=== PATIENT | male | born 1975 | race Caucasian/White ===

== ENCOUNTER 2021-08-06 11:55 | Inpatient (IN) | payer OTHER ==
[~2021-08-06] VITALS: Ht 172.7 cm; Wt 95.5 kg
[2021-08-06 12:41] LABS: HEMATOCRIT 39.9 % (42.0-52.0); HEMOGLOBIN 13.4 g/dl (13.5-17.5); MEAN CORPUSCULAR HEMOGLOBIN 29.3 pg (27.0-33.0); MEAN CORPUSCULAR HGB CONC 33.6 g/dl (32.0-36.5); MEAN CORPUSCULAR VOLUME 87.1 fl (80.0-96.0); PLATELET COUNT, AUTOMATED 302 10^3/uL (150-450); RED BLOOD COUNT 4.58 10^6/uL (4.30-6.10); WHITE BLOOD COUNT 9.3 10^3/uL (4.0-10.0)
[2021-08-06 13:14] LABS: ACETAMINOPHEN LEVEL < 2.0 UG/ML (10.0-30.0); ALBUMIN 3.7 GM/DL (3.2-5.2); ALT/SGPT 31 U/L (12-78); BILIRUBIN,DIRECT < 0.1 MG/DL (0.0-0.2); BILIRUBIN,TOTAL 0.2 MG/DL (0.2-1.0); BLOOD UREA NITROGEN 12 MG/DL (7-18); CALCIUM LEVEL 8.7 MG/DL (8.5-10.1); CARBON DIOXIDE LEVEL 27 MEQ/L (21-32); CHLORIDE LEVEL 106 MEQ/L (98-107); CREATININE FOR GFR 0.89 MG/DL (0.70-1.30); ETHYL ALCOHOL (ETHANOL) < 0.003 % (0.000-0.010); GLOMERULAR FILTRATION RATE > 60.0 (>60); GLUCOSE, FASTING 111 MG/DL (70-100); POTASSIUM SERUM 4.1 MEQ/L (3.5-5.1); SALICYLATE LEVEL < 1.7 MG/DL (5.0-30.0); SODIUM LEVEL 140 MEQ/L (136-145); TOTAL PROTEIN 6.9 GM/DL (6.4-8.2)
[2021-08-06 13:33] LABS: AMPHETAMINES LEVEL URINE NEGATIVE (NEGATIVE); BARBITURATES URINE NEGATIVE (NEGATIVE); BENZODIAZEPINES URINE NEGATIVE (NEGATIVE); CANNABINOIDS URINE POSITIVE (NEGATIVE); COCAINE METABOLITE URINE NEGATIVE (NEGATIVE); METHADONE URINE NEGATIVE (NEGATIVE); OPIATES URINE NEGATIVE (NEGATIVE); PHENCYCLIDINE URINE NEGATIVE (NEGATIVE)
[2021-08-06] MEDS ORDERED: HOME MED LIST COMPLETE! XX SCH (13:55)
[2021-08-06] MEDS ORDERED: NICOTINE POLACRILEX 2 MG GUM PO ONE (14:00)
[2021-08-06 15:32] LABS: RSV AMPLIFICATION NEGATIVE (NEGATIVE)
[2021-08-06] MEDS ORDERED: MOM 30ML SUSPENSION UDC PO PRN (18:30)
[2021-08-06] MEDS ORDERED: MAALOX 30 ML SUSP *UDC PO PRN (18:30)
[2021-08-06 22:22] VITALS: BP 131/88
[2021-08-06] MEDS: PALIPERIDONE 3 MG ER TAB (INVEGA) PO SCH (22:48)
[2021-08-06] MEDS: traZODone 50 MG TAB PO PRN (23:34)
[2021-08-07 07:23] VITALS: BP 125/78
[2021-08-07] MEDS: PALIPERIDONE 3 MG ER TAB (INVEGA) PO SCH (08:57)
[2021-08-07] MEDS: NICOTINE 21MG/24HR 1 EA TRANSDERMAL TD SCH (08:58)
[2021-08-07 18:56] VITALS: BP 123/86
[2021-08-07] MEDS: ACETAMINOPHEN TAB 650MG DOSE (2X325MG) PO PRN (21:40)
[2021-08-07] MEDS: DIVALPROEX 250 MG TAB PO SCH (21:40)
[2021-08-07] MEDS: traZODone 50 MG TAB PO PRN (21:40)
[2021-08-08 06:27] VITALS: BP 132/69
[2021-08-08] MEDS: DIVALPROEX 250 MG TAB PO SCH ×3 (09:28→20:31)
[2021-08-08] MEDS: NICOTINE 21MG/24HR 1 EA TRANSDERMAL TD SCH (09:29)
[2021-08-08] MEDS: OLANZapine ORAL DISINTEGRATING TAB 5MG PO PRN (14:21)
[2021-08-08 19:00] VITALS: BP 126/84
[2021-08-08] MEDS: traZODone 50 MG TAB PO PRN (20:31)
[2021-08-09 06:17] VITALS: BP 129/72
[2021-08-09] MEDS: NICOTINE 21MG/24HR 1 EA TRANSDERMAL TD SCH (08:17)
[2021-08-09] MEDS: DIVALPROEX 250 MG TAB PO SCH ×3 (08:17→20:41)
[2021-08-09] MEDS: OLANZapine ORAL DISINTEGRATING TAB 5MG PO PRN ×2 (08:49→15:48)
[2021-08-09] MEDS: ACETAMINOPHEN TAB 650MG DOSE (2X325MG) PO PRN (12:29)
[2021-08-09 16:47] VITALS: BP 128/84
[2021-08-09] MEDS: OLANZapine 10 MG TAB PO SCH (20:41)
[2021-08-09] MEDS: traZODone 50 MG TAB PO PRN (20:41)
[2021-08-10 06:18] VITALS: BP 122/59
[2021-08-10 07:13] LABS: CK-MB VALUE MASS < 1.0 NG/ML (<3.6); CPK CREATINE PHOSPHOKINASE 88 U/L (39-308); MB/CK RELATIVE INDEX 1.14 (< OR =4)
[2021-08-10] MEDS: DIVALPROEX 250 MG TAB PO SCH ×3 (08:38→20:10)
[2021-08-10] MEDS: NICOTINE 21MG/24HR 1 EA TRANSDERMAL TD SCH (08:39)
[2021-08-10] MEDS: OLANZapine ORAL DISINTEGRATING TAB 5MG PO PRN (10:35)
[2021-08-10 16:00] VITALS: BP 123/77
[2021-08-10] MEDS: traZODone 50 MG TAB PO PRN (20:10)
[2021-08-10] MEDS: OLANZapine 10 MG TAB PO SCH (20:10)
[2021-08-11 05:58] VITALS: BP 107/58
[2021-08-11 07:20] LABS: CHOLESTEROL RISK RATIO 2.967 (<5)
[2021-08-11] MEDS: DIVALPROEX 250 MG TAB PO SCH (08:26)
[2021-08-11] MEDS: NICOTINE 21MG/24HR 1 EA TRANSDERMAL TD SCH (08:27)
[2021-08-11] MEDS: OLANZapine ORAL DISINTEGRATING TAB 5MG PO PRN (08:55)
[2021-08-11 16:25] VITALS: BP 130/94
[2021-08-11] MEDS: OLANZapine 10 MG TAB PO SCH (20:45)
[2021-08-11] MEDS: DIVALPROEX 500 MG TAB PO SCH (20:47)
[2021-08-11] MEDS: traZODone 50 MG TAB PO PRN (20:47)
[2021-08-12 06:34] VITALS: BP 128/64
[2021-08-12] MEDS: DIVALPROEX 500 MG TAB PO SCH ×2 (09:00→20:35)
[2021-08-12] MEDS: NICOTINE 21MG/24HR 1 EA TRANSDERMAL TD SCH (09:00)
[2021-08-12] MEDS ORDERED: hydrOXYzine 50 MG TAB PO PRN (10:15)
[2021-08-12] MEDS: OLANZapine ORAL DISINTEGRATING TAB 5MG PO PRN (12:03)
[2021-08-12] MEDS: BENZTROPINE 1 MG TAB PO PRN ×2 (12:03→20:35)
[2021-08-12 19:20] VITALS: BP 156/86
[2021-08-12] MEDS: traZODone 50 MG TAB PO PRN (20:35)
[2021-08-12] MEDS: OLANZapine 10 MG TAB PO SCH (20:35)
[2021-08-13 06:20] VITALS: BP 112/67
[2021-08-13] MEDS: NICOTINE 21MG/24HR 1 EA TRANSDERMAL TD SCH (08:29)
[2021-08-13] MEDS: DIVALPROEX 500 MG TAB PO SCH (08:29)
[2021-08-13] MEDS ORDERED: TRAZ-252 PO (08:36)
[2021-08-13] MEDS ORDERED: DEPA1TAB3 PO (08:36)
[2021-08-13] MEDS ORDERED: BENZ-52 PO (08:36)
[2021-08-13] MEDS ORDERED: OLAN1TAB20 PO (08:36)
[2021-08-13] MEDS: OLANZapine ORAL DISINTEGRATING TAB 5MG PO PRN (09:27)
== END 2021-08-13 11:32 | disposition home or self-care (01) | DRG 753 ==
LOC: M ED 11:55 → M ED INP 18:27 → M PSY 22:16
PROVIDERS: ADMIT Psychiatry & Neurology Psychiatry; ATTEND Psychiatry & Neurology Psychiatry
DX: F31.9 Bipolar disorder, unspecified (principal); F11.11 Opioid abuse, in remission; F12.10 Cannabis abuse, uncomplicated; F14.11 Cocaine abuse, in remission; F15.11 Other stimulant abuse, in remission; F60.2 Antisocial personality disorder; Z86.718 Personal history of other venous thrombosis and embolism; I83.811 Varicose veins of right lower extremity with pain; M54.31 Sciatica, right side; Z20.822 Contact with and (suspected) exposure to COVID-19; Z81.1 Family history of alcohol abuse and dependence; Z88.8 Allergy status to other drugs, medicaments and biological substances; Z62.811 Personal history of psychological abuse in childhood; Z62.810 Personal history of physical and sexual abuse in childhood

== ENCOUNTER 2021-09-23 10:03 | Inpatient (IN) | payer OTHER ==
[~2021-09-23] VITALS: Ht 172.7 cm; Wt 103.6 kg
[~2021-09-23 10:03] MED LIST: BENZ-52 PO; DEPA1TAB3 PO; OLAN1TAB20 PO; TRAZ-252 PO
[2021-09-23] MEDS ORDERED: ARIP1TAB10 PO (10:13)
[2021-09-23 10:47] LABS: HEMATOCRIT 41.5 % (42.0-52.0); HEMOGLOBIN 14.1 g/dl (13.5-17.5); MEAN CORPUSCULAR HEMOGLOBIN 30.4 pg (27.0-33.0); MEAN CORPUSCULAR VOLUME 89.4 fl (80.0-96.0); PLATELET COUNT, AUTOMATED 291 10^3/uL (150-450); RED BLOOD COUNT 4.64 10^6/uL (4.30-6.10)
[2021-09-23 11:31] LABS: ACETAMINOPHEN LEVEL < 2.0 UG/ML (10.0-30.0); ALBUMIN 3.5 GM/DL (3.2-5.2); ALT/SGPT 34 U/L (12-78); BILIRUBIN,DIRECT < 0.1 MG/DL (0.0-0.2); BILIRUBIN,TOTAL 0.4 MG/DL (0.2-1.0); BLOOD UREA NITROGEN 11 MG/DL (7-18); CALCIUM LEVEL 9.1 MG/DL (8.5-10.1); CARBON DIOXIDE LEVEL 28 MEQ/L (21-32); CHLORIDE LEVEL 107 MEQ/L (98-107); CREATININE FOR GFR 0.94 MG/DL (0.70-1.30); ETHYL ALCOHOL (ETHANOL) < 0.003 % (0.000-0.010); GLOMERULAR FILTRATION RATE > 60.0 (>60); GLUCOSE, FASTING 147 MG/DL (70-100); POTASSIUM SERUM 4.6 MEQ/L (3.5-5.1); SALICYLATE LEVEL < 1.7 MG/DL (5.0-30.0); SODIUM LEVEL 140 MEQ/L (136-145); THYROID STIMULATING HORMONE 0.571 uIU/ML (0.358-3.740); TOTAL PROTEIN 6.6 GM/DL (6.4-8.2)
[2021-09-23 11:34] LABS: AMPHETAMINES LEVEL URINE NEGATIVE (NEGATIVE); BARBITURATES URINE NEGATIVE (NEGATIVE); BENZODIAZEPINES URINE NEGATIVE (NEGATIVE); CANNABINOIDS URINE POSITIVE (NEGATIVE); COCAINE METABOLITE URINE NEGATIVE (NEGATIVE); METHADONE URINE NEGATIVE (NEGATIVE); OPIATES URINE NEGATIVE (NEGATIVE); PHENCYCLIDINE URINE NEGATIVE (NEGATIVE)
[2021-09-23] MEDS ORDERED: DIVA500T94 PO (13:31)
[2021-09-23] MEDS ORDERED: HOME MED LIST COMPLETE! XX SCH (13:35)
[2021-09-23 14:31] LABS: VALPROIC ACID (DEPAKOTE) 53.6 UG/ML (50.0-100.0)
[2021-09-23 17:23] LABS: RSV AMPLIFICATION NEGATIVE (NEGATIVE)
[2021-09-23] MEDS ORDERED: MOM 30ML SUSPENSION UDC PO PRN (18:20)
[2021-09-23] MEDS ORDERED: MAALOX 30 ML SUSP *UDC PO PRN (18:20)
[2021-09-23] MEDS: DIVALPROEX 500 MG TAB PO SCH (20:26)
[2021-09-23 22:29] VITALS: BP 143/87
[2021-09-24 06:07] VITALS: BP 111/68
[2021-09-24] MEDS: ARIPiprazole 15 MG TAB (AbiLIFY) PO SCH (08:27)
[2021-09-24] MEDS: DIVALPROEX 500 MG TAB PO SCH (08:27)
[2021-09-24] MEDS: NICOTINE 21MG/24HR 1 EA TRANSDERMAL TD PRN (09:52)
[2021-09-24] MEDS: hydrOXYzine 50 MG TAB PO PRN ×2 (13:13→20:12)
[2021-09-24 17:20] VITALS: BP 135/79
[2021-09-24] MEDS: DIVALPROEX 250 MG TAB PO SCH (20:10)
[2021-09-25 06:53] VITALS: BP 125/58
[2021-09-25] MEDS: ARIPiprazole 15 MG TAB (AbiLIFY) PO SCH (08:35)
[2021-09-25] MEDS: DIVALPROEX 250 MG TAB PO SCH ×2 (08:36→20:59)
[2021-09-25] MEDS: hydrOXYzine 50 MG TAB PO PRN (11:20)
[2021-09-25] MEDS: OLANZapine ORAL DISINTEGRATING TAB 5MG PO PRN (15:32)
[2021-09-25 16:19] VITALS: BP 128/84
[2021-09-25] MEDS: NICOTINE 21MG/24HR 1 EA TRANSDERMAL TD PRN (17:16)
[2021-09-26 06:30] VITALS: BP 140/92
[2021-09-26] MEDS: ACETAMINOPHEN TAB 650MG DOSE (2X325MG) PO PRN (08:13)
[2021-09-26] MEDS: ARIPiprazole 15 MG TAB (AbiLIFY) PO SCH (08:14)
[2021-09-26] MEDS: DIVALPROEX 250 MG TAB PO SCH ×2 (08:14→20:31)
[2021-09-26] MEDS: hydrOXYzine 50 MG TAB PO PRN (11:25)
[2021-09-26 16:26] VITALS: BP 128/78
[2021-09-26] MEDS: OLANZapine ORAL DISINTEGRATING TAB 5MG PO PRN (20:30)
[2021-09-26] MEDS: traZODone 50 MG TAB PO PRN (20:30)
[2021-09-26] MEDS: NICOTINE 21MG/24HR 1 EA TRANSDERMAL TD PRN (21:08)
[2021-09-27 07:04] VITALS: BP 109/69
[2021-09-27] MEDS: DIVALPROEX 250 MG TAB PO SCH ×2 (08:15→20:20)
[2021-09-27] MEDS: ACETAMINOPHEN TAB 650MG DOSE (2X325MG) PO PRN (08:15)
[2021-09-27] MEDS: ARIPiprazole 15 MG TAB (AbiLIFY) PO SCH (08:15)
[2021-09-27] MEDS: hydrOXYzine 50 MG TAB PO PRN (11:49)
[2021-09-27] MEDS ORDERED: ARIPiprazole MONOHYDRATE 400 MG INJ (ABILIFY) IM ONE (12:45)
[2021-09-27] MEDS: GABAPENTIN 100 MG CAP PO SCH ×2 (15:40→20:20)
[2021-09-27 19:20] VITALS: BP 122/74
[2021-09-27] MEDS: traZODone 50 MG TAB PO PRN (20:19)
[2021-09-27] MEDS: OLANZapine ORAL DISINTEGRATING TAB 5MG PO PRN (20:20)
[2021-09-27] MEDS ORDERED: ONDANSETRON 4MG ORAL DISINTEGRATING TAB SL PRN (21:20)
[2021-09-28 06:51] VITALS: BP 130/81
[2021-09-28] MEDS: ARIPiprazole 15 MG TAB (AbiLIFY) PO SCH (08:50)
[2021-09-28] MEDS: GABAPENTIN 100 MG CAP PO SCH ×3 (08:51→20:50)
[2021-09-28] MEDS: DIVALPROEX 250 MG TAB PO SCH ×2 (08:51→20:50)
[2021-09-28] MEDS: NICOTINE 21MG/24HR 1 EA TRANSDERMAL TD PRN (08:56)
[2021-09-28] MEDS: OLANZapine ORAL DISINTEGRATING TAB 5MG PO PRN (15:55)
[2021-09-28 16:40] VITALS: BP 136/81
[2021-09-28] MEDS: traZODone 50 MG TAB PO PRN (20:50)
[2021-09-29 06:42] VITALS: BP 132/64
[2021-09-29] MEDS: GABAPENTIN 100 MG CAP PO SCH ×2 (08:19→15:28)
[2021-09-29] MEDS: ARIPiprazole 15 MG TAB (AbiLIFY) PO SCH (08:20)
[2021-09-29] MEDS: DIVALPROEX 250 MG TAB PO SCH (08:20)
[2021-09-29] MEDS: NICOTINE 21MG/24HR 1 EA TRANSDERMAL TD PRN (13:13)
[2021-09-29] MEDS ORDERED: ARIP1TAB10 PO (13:50)
[2021-09-29] MEDS ORDERED: DEPA250T32 PO (13:50)
[2021-09-29] MEDS ORDERED: GABA-1171 PO (13:50)
[2021-09-29] MEDS ORDERED: NICO21PAT TD (13:50)
[2021-09-29] MEDS ORDERED: ABIL1INJ2 IM (14:37)
== END 2021-09-29 15:32 | disposition home or self-care (01) | DRG 753 ==
LOC: M ED 10:03 → M ED INP 18:17 → M PSY 22:20
PROVIDERS: ADMIT Psychiatry & Neurology Psychiatry; ATTEND Psychiatry & Neurology Psychiatry
DX: F31.10 Bipolar disorder, current episode manic without psychotic features, unspecified (principal); F12.90 Cannabis use, unspecified, uncomplicated; F41.9 Anxiety disorder, unspecified; F11.11 Opioid abuse, in remission; F14.11 Cocaine abuse, in remission; F15.11 Other stimulant abuse, in remission; Z91.51 Personal history of suicidal behavior; Z20.822 Contact with and (suspected) exposure to COVID-19; Z81.4 Family history of other substance abuse and dependence; Z79.899 Other long term (current) drug therapy; Z86.718 Personal history of other venous thrombosis and embolism

== ENCOUNTER → 2022-05-11 | Outpatient (CLI) | payer OTHER ==
[~2022-05-11] MED LIST changes: +ABIL1INJ2 IM; +ARIP1TAB10 PO; +DEPA250T32 PO; +DIVA500T94 PO; +GABA-1171 PO; +NICO21PAT TD
== END ==
LOC: M RAD 12:05
PROVIDERS: ATTEND Surgery
DX: I83.891 Varicose veins of right lower extremity with other complications (principal)

== ENCOUNTER 2022-11-03 07:11 | Day surgery (SDC) | payer OTHER ==
[~2022-11-03] VITALS: Ht 172.7 cm; Wt 98.4 kg
[~2022-11-03 07:11] MED LIST changes: -BENZ-52 PO; +BENZ1TAB5 PO; +BUPR-365 PO; +DIAZ2TAB PO; +IBUP200C25 PO; +LAMO150T3 PO; +NS 1,000 ML IV ONE
[2022-11-03] MEDS ORDERED: propofoL 200 MG/20 ML VIAL As Ordered ONE (08:11)
[2022-11-03 09:04] VITALS: BP 135/84
== END 2022-11-03 09:06 | disposition home or self-care (01) ==
LOC: M OPP 07:11
PROVIDERS: ATTEND Internal Medicine Gastroenterology
DX: Z12.11 Encounter for screening for malignant neoplasm of colon (principal); D12.6 Benign neoplasm of colon, unspecified; K64.4 Residual hemorrhoidal skin tags; K64.8 Other hemorrhoids; F17.220 Nicotine dependence, chewing tobacco, uncomplicated; Z79.1 Long term (current) use of non-steroidal anti-inflammatories (NSAID); Z79.899 Other long term (current) drug therapy

== ENCOUNTER → 2022-12-28 | Outpatient (REF) | payer OTHER, MEDICAID ==
[~2022-12-28] MED LIST changes: -NS 1,000 ML IV ONE
[2022-12-28 13:39] LABS: BASO # 0.1 10^3/uL (0.0-0.2); BASO % 0.8 % (0.0-1.0); EOS # 0.3 10^3/uL (0.0-0.5); EOS % 5.1 % (0.0-3.0); HEMATOCRIT 42.1 % (42.0-52.0); HEMOGLOBIN 14.1 g/dl (13.5-17.5); HEMOGLOBIN A1c 5.3 % (4.0-6.0); LYMPH # 2.9 10^3/uL (1.5-5.0); LYMPH % 44.1 % (24.0-44.0); MEAN CORPUSCULAR HEMOGLOBIN 29.3 pg (27.0-33.0); MEAN CORPUSCULAR HGB CONC 33.5 g/dl (32.0-36.5); MEAN CORPUSCULAR VOLUME 87.3 fl (80.0-96.0); MONO # 0.7 10^3/uL (0.0-0.8); MONO % 10.5 % (2.0-8.0); NEUTROPHILS # 2.6 10^3/uL (1.5-8.5); NEUTROPHILS % 39.3 % (36.0-66.0); PLATELET COUNT, AUTOMATED 346 10^3/uL (150-450); RED BLOOD COUNT 4.82 10^6/uL (4.30-6.10); WHITE BLOOD COUNT 6.5 10^3/uL (4.0-10.0)
[2022-12-28 13:45] LABS: ALBUMIN 4.1 G/DL (3.2-5.2); ALKALINE PHOSPHATASE 75 U/L (46-116); ALT/SGPT 16 U/L (7.0-40); AST/SGOT 11 U/L (<34); BILIRUBIN,TOTAL 0.3 MG/DL (0.3-1.2); BLOOD UREA NITROGEN 14 MG/DL (9-23); CALCIUM LEVEL 9.1 MG/DL (8.5-10.1); CARBON DIOXIDE LEVEL 27 MMOL/L (20-31); CHLORIDE LEVEL 107 MMOL/L (98-107); CHOLESTEROL LEVEL 138 MG/DL (<200); CHOLESTEROL RISK RATIO 2.13 (<5); CREATININE FOR GFR 1.02 MG/DL (0.70-1.30); GLOMERULAR FILTRATION RATE > 60.0 (>60); GLUCOSE, FASTING 109 MG/DL (60-100); HDL CHOLESTEROL 64.5 MG/DL (>40); LDL CHOLESTEROL 60.7 MG/DL (<100); NON-HDL-C 73.5 MG/DL; POTASSIUM SERUM 4.2 MMOL/L (3.5-5.1); SODIUM LEVEL 143 MMOL/L (136-145); TOTAL PROTEIN 6.8 G/DL (5.7-8.2); TRIGLYCERIDES LEVEL 64 MG/DL (<150)
[2022-12-28 13:47] LABS: THYROID STIMULATING HORMONE 1.592 uIU/ML (0.55-4.78)
[2022-12-29 23:07] LABS: PSA TOTAL 1.3 ng/mL (0.0-4.0)
== END ==
LOC: M LAB REF 11:39
PROVIDERS: ATTEND Nurse Practitioner Family
DX: Z13.228 Encounter for screening for other metabolic disorders (principal); Z12.5 Encounter for screening for malignant neoplasm of prostate

== ENCOUNTER 2023-05-10 12:50 | Emergency (ER) | payer OTHER, MEDICAID ==
[~2023-05-10] VITALS: Ht 172.7 cm; Wt 85.4 kg
[2023-05-10] MEDS ORDERED: VITA200032 (13:04)
[2023-05-10] MEDS ORDERED: BUPR1SUB5 (13:04)
[2023-05-10] MEDS ORDERED: TADA5TAB (13:04)
[2023-05-10] MEDS ORDERED: ACETAMINOPHEN 500 MG TAB PO ONE (15:00)
[2023-05-10] MEDS ORDERED: methocarbamoL 500 MG TAB PO ONE (16:25)
[2023-05-10] MEDS ORDERED: IBUPROFEN 600MG TAB PO ONE (16:25)
[2023-05-10] MEDS ORDERED: predniSONE 20 MG TAB PO ONE (16:30)
[2023-05-10 16:44] VITALS: BP 128/69; TEMP 97.9; O2SAT 99
== END 2023-05-10 16:49 | disposition home or self-care (01) ==
LOC: M ED 12:50
DX: S09.90XA Unspecified injury of head, initial encounter (principal); S13.4XXA Sprain of ligaments of cervical spine, initial encounter; S23.3XXA Sprain of ligaments of thoracic spine, initial encounter; V49.40XA Driver injured in collision with unspecified motor vehicles in traffic accident, initial encounter; Y92.410 Unspecified street and highway as the place of occurrence of the external cause; Z86.718 Personal history of other venous thrombosis and embolism; M54.50 Low back pain, unspecified; Z79.899 Other long term (current) drug therapy; Y93.89 Activity, other specified; Y99.8 Other external cause status

== ENCOUNTER → 2023-05-22 | Outpatient (CLI) | payer OTHER ==
[~2023-05-22] MED LIST changes: +BUPR1SUB5 SL; +BUPR8SUB SL; +BUSP30TA PO; +DIAZ5TAB PO; +LAMO200T54 PO; +TADA5TAB PO; +VITA200032 PO; +med rec comment
[2023-05-22 14:05] LABS: BASO % 0.2 % (0.0-1.0); EOS % 0.3 % (0.0-3.0); HEMATOCRIT 38.8 % (42.0-52.0); HEMOGLOBIN 13.2 g/dl (13.5-17.5); LYMPH # 1.3 10^3/uL (1.5-5.0); LYMPH % 12.4 % (24.0-44.0); MEAN CORPUSCULAR HEMOGLOBIN 29.1 pg (27.0-33.0); MEAN CORPUSCULAR VOLUME 85.5 fl (80.0-96.0); MONO # 0.7 10^3/uL (0.0-0.8); NEUTROPHILS # 8.2 10^3/uL (1.5-8.5); NEUTROPHILS % 79.9 % (36.0-66.0); PLATELET COUNT, AUTOMATED 346 10^3/uL (150-450); RED BLOOD COUNT 4.54 10^6/uL (4.30-6.10); WHITE BLOOD COUNT 10.3 10^3/uL (4.0-10.0)
[2023-05-22 14:17] LABS: ALBUMIN 4.1 G/DL (3.2-5.2); ALKALINE PHOSPHATASE 62 U/L (46-116); ALT/SGPT 20 U/L (7.0-40); AST/SGOT 16 U/L (<34); BILIRUBIN,TOTAL 0.5 MG/DL (0.3-1.2); BLOOD UREA NITROGEN 13 MG/DL (9-23); CALCIUM LEVEL 9.3 MG/DL (8.5-10.1); CARBON DIOXIDE LEVEL 29 MMOL/L (20-31); CHLORIDE LEVEL 101 MMOL/L (98-107); CHOLESTEROL LEVEL 149 MG/DL (<200); FREE T4 1.16 NG/DL (0.89-1.76); GLOMERULAR FILTRATION RATE > 60.0 (>60); GLUCOSE, FASTING 132 MG/DL (60-100); HDL CHOLESTEROL 74.4 MG/DL (>40); NON-HDL-C 74.6 MG/DL; POTASSIUM SERUM 4.4 MMOL/L (3.5-5.1); SODIUM LEVEL 137 MMOL/L (136-145); THYROID STIMULATING HORMONE 1.682 uIU/ML (0.55-4.78); TOTAL PROTEIN 6.9 G/DL (5.7-8.2); TRIGLYCERIDES LEVEL 68 MG/DL (<150)
== END ==
LOC: M PLALAB 10:15
PROVIDERS: ATTEND Psychiatry & Neurology Psychiatry
DX: F31.31 Bipolar disorder, current episode depressed, mild (principal); F41.1 Generalized anxiety disorder

== ENCOUNTER 2023-05-26 15:07 | Inpatient (IN) | payer MEDICAID, OTHER ==
[~2023-05-26] VITALS: Ht 172.7 cm; Wt 82.8 kg
[~2023-05-26 15:07] MED LIST changes: -BUPR8SUB SL; -BUSP30TA PO; -DIAZ5TAB PO; -LAMO200T54 PO; -med rec comment
[2023-05-26] MEDS ORDERED: DIAZ5TAB PO (15:18)
[2023-05-26] MEDS ORDERED: LAMO200T54 PO (15:18)
[2023-05-26] MEDS ORDERED: BUSP30TA PO (15:18)
[2023-05-26 15:59] LABS: HEMATOCRIT 41.9 % (42.0-52.0); HEMOGLOBIN 13.9 g/dl (13.5-17.5); MEAN CORPUSCULAR HEMOGLOBIN 28.7 pg (27.0-33.0); MEAN CORPUSCULAR HGB CONC 33.2 g/dl (32.0-36.5); MEAN CORPUSCULAR VOLUME 86.6 fl (80.0-96.0); PLATELET COUNT, AUTOMATED 388 10^3/uL (150-450); RED BLOOD COUNT 4.84 10^6/uL (4.30-6.10); WHITE BLOOD COUNT 10.1 10^3/uL (4.0-10.0)
[2023-05-26 16:23] LABS: AMPHETAMINES LEVEL URINE NEGATIVE (NEGATIVE); BARBITURATES URINE NEGATIVE (NEGATIVE); COCAINE METABOLITE URINE NEGATIVE (NEGATIVE); METHADONE URINE NEGATIVE (NEGATIVE); OPIATES URINE NEGATIVE (NEGATIVE); PHENCYCLIDINE URINE NEGATIVE (NEGATIVE)
[2023-05-26 16:25] LABS: BENZODIAZEPINES URINE POSITIVE (NEGATIVE); CANNABINOIDS URINE POSITIVE (NEGATIVE); ETHYL ALCOHOL (ETHANOL) 0.004 % (0.000-0.010)
[2023-05-26 16:26] LABS: ALBUMIN 4.1 G/DL (3.2-5.2); ALKALINE PHOSPHATASE 58 U/L (46-116); ALT/SGPT 15 U/L (7.0-40); AST/SGOT 10 U/L (<34); BILIRUBIN,DIRECT 0.2 MG/DL (<0.4); BILIRUBIN,TOTAL 0.4 MG/DL (0.3-1.2); BLOOD UREA NITROGEN 8 MG/DL (9-23); CALCIUM LEVEL 9.9 MG/DL (8.5-10.1); CARBON DIOXIDE LEVEL 29 MMOL/L (20-31); CHLORIDE LEVEL 106 MMOL/L (98-107); GLOMERULAR FILTRATION RATE > 60.0 (>60); GLUCOSE, FASTING 92 MG/DL (60-100); POTASSIUM SERUM 4.3 MMOL/L (3.5-5.1); SALICYLATE LEVEL < 3.0 MG/DL (<30); SODIUM LEVEL 141 MMOL/L (136-145); TOTAL PROTEIN 6.9 G/DL (5.7-8.2)
[2023-05-26 16:29] LABS: THYROID STIMULATING HORMONE 1.242 uIU/ML (0.55-4.78)
[2023-05-26 17:11] LABS: HIV 1&2 SCREEN NEGATIVE (NEGATIVE)
[2023-05-26 17:19] LABS: HEPATITIS C VIRUS ABY INDEX 0.07 INDEX (<0.8)
[2023-05-26] MEDS ORDERED: MOM 30ML SUSPENSION UDC PO PRN (18:05)
[2023-05-26] MEDS ORDERED: MAALOX 30 ML SUSP *UDC PO PRN (18:05)
[2023-05-26] MEDS ORDERED: MED REC IN PROGRESS XX SCH (18:45)
[2023-05-26] MEDS ORDERED: med rec comment (20:53)
[2023-05-26] MEDS ORDERED: BUPR8SUB SL (20:55)
[2023-05-26] MEDS ORDERED: HOME MED LIST COMPLETE! XX SCH (20:55)
[2023-05-26 21:15] VITALS: BP 107/69; TEMP 97.8; O2SAT 100
[2023-05-27 06:15] VITALS: BP 132/79; TEMP 97.7; O2SAT 100
[2023-05-27] MEDS: lamoTRIgine 100MG TAB PO SCH ×2 (09:26→20:14)
[2023-05-27] MEDS: diazePAM 5MG TABLET PO SCH ×2 (10:45→20:14)
[2023-05-27] MEDS: busPIRone 10 MG TAB PO SCH ×2 (10:45→20:14)
[2023-05-27] MEDS: BUPRENORPHINE HCL 8MG SUBINGUAL TABLET SL SCH (10:45)
[2023-05-27] MEDS: NICOTINE 21MG/24HR 1 EA TRANSDERMAL TD SCH (12:33)
[2023-05-27 16:38] VITALS: BP 121/74; TEMP 98.9; O2SAT 99
[2023-05-27] MEDS: LURASIDONE HCL 40MG TAB (LATUDA) PO SCH (17:30)
[2023-05-28 06:48] VITALS: BP 130/79; TEMP 98; O2SAT 100
[2023-05-28] MEDS: NICOTINE 21MG/24HR 1 EA TRANSDERMAL TD SCH (08:10)
[2023-05-28] MEDS: busPIRone 10 MG TAB PO SCH ×2 (08:10→17:23)
[2023-05-28] MEDS: diazePAM 5MG TABLET PO SCH ×2 (08:10→17:23)
[2023-05-28] MEDS: lamoTRIgine 100MG TAB PO SCH ×2 (08:10→20:22)
[2023-05-28] MEDS: BUPRENORPHINE HCL 8MG SUBINGUAL TABLET SL SCH (08:11)
[2023-05-28 18:00] VITALS: BP 140/84; TEMP 98.3; O2SAT 100
[2023-05-28] MEDS: LURASIDONE HCL 40MG TAB (LATUDA) PO SCH (18:00)
[2023-05-28] MEDS: traZODone 50 MG TAB PO PRN (20:23)
[2023-05-29 06:23] VITALS: BP 114/70; TEMP 97.9; O2SAT 99
[2023-05-29] MEDS: lamoTRIgine 100MG TAB PO SCH ×2 (08:04→21:03)
[2023-05-29] MEDS: BUPRENORPHINE HCL 8MG SUBINGUAL TABLET SL SCH (08:04)
[2023-05-29] MEDS: busPIRone 10 MG TAB PO SCH ×2 (08:04→17:13)
[2023-05-29] MEDS: NICOTINE 21MG/24HR 1 EA TRANSDERMAL TD SCH (08:04)
[2023-05-29] MEDS: diazePAM 5MG TABLET PO SCH ×2 (08:04→17:13)
[2023-05-29 16:30] VITALS: BP 136/78; TEMP 98.3; O2SAT 100
[2023-05-29] MEDS: LURASIDONE HCL 40MG TAB (LATUDA) PO SCH (17:13)
[2023-05-29] MEDS: ACETAMINOPHEN TAB 650MG DOSE (2X325MG) PO PRN (18:55)
[2023-05-29] MEDS: traZODone 50 MG TAB PO PRN (21:02)
[2023-05-30 06:32] VITALS: BP 148/94; TEMP 98.2; O2SAT 99
[2023-05-30] MEDS: diazePAM 5MG TABLET PO SCH ×2 (07:59→16:43)
[2023-05-30] MEDS: lamoTRIgine 100MG TAB PO SCH ×2 (07:59→20:24)
[2023-05-30] MEDS: BUPRENORPHINE HCL 8MG SUBINGUAL TABLET SL SCH (07:59)
[2023-05-30] MEDS: busPIRone 10 MG TAB PO SCH ×2 (07:59→16:43)
[2023-05-30] MEDS: NICOTINE 21MG/24HR 1 EA TRANSDERMAL TD SCH (08:00)
[2023-05-30] MEDS ORDERED: OLANZapine ORAL DISINTEGRATING TAB 5MG PO ONE (12:00)
[2023-05-30 17:45] VITALS: BP 123/77; TEMP 97.9; O2SAT 100
[2023-05-30] MEDS ORDERED: LURASIDONE 20 MG TAB (LATUDA) PO SCH (18:00)
[2023-05-30] MEDS: PALIPERIDONE 3MG ER TAB (INVEGA) PO SCH (20:24)
[2023-05-30] MEDS ORDERED: PALIPERIDONE 3MG ER TAB (INVEGA) PO SCH (21:00)
[2023-05-30] MEDS: traZODone 50 MG TAB PO PRN (21:09)
[2023-05-31 06:35] VITALS: BP 125/74; TEMP 98.4; O2SAT 99
[2023-05-31] MEDS: busPIRone 10 MG TAB PO SCH ×2 (08:07→16:58)
[2023-05-31] MEDS: BUPRENORPHINE HCL 8MG SUBINGUAL TABLET SL SCH (08:07)
[2023-05-31] MEDS: PALIPERIDONE 3MG ER TAB (INVEGA) PO SCH ×2 (08:07→20:23)
[2023-05-31] MEDS: NICOTINE 21MG/24HR 1 EA TRANSDERMAL TD SCH (08:07)
[2023-05-31] MEDS: diazePAM 5MG TABLET PO SCH ×2 (08:07→16:58)
[2023-05-31] MEDS: lamoTRIgine 100MG TAB PO SCH ×2 (08:07→20:23)
[2023-05-31] MEDS ORDERED: OLANZapine ORAL DISINTEGRATING TAB 5MG PO PRN (09:00)
[2023-05-31 15:50] VITALS: BP 110/69; TEMP 98.3; O2SAT 99
[2023-05-31] MEDS: traZODone 50 MG TAB PO PRN (20:23)
[2023-05-31] MEDS: ACETAMINOPHEN TAB 650MG DOSE (2X325MG) PO PRN (22:53)
[2023-06-01 06:25] VITALS: BP 133/54; TEMP 98.6; O2SAT 99
[2023-06-01] MEDS: lamoTRIgine 100MG TAB PO SCH ×2 (08:12→20:09)
[2023-06-01] MEDS: diazePAM 5MG TABLET PO SCH ×2 (08:12→16:46)
[2023-06-01] MEDS: BUPRENORPHINE HCL 8MG SUBINGUAL TABLET SL SCH (08:12)
[2023-06-01] MEDS: PALIPERIDONE 3MG ER TAB (INVEGA) PO SCH (08:12)
[2023-06-01] MEDS: NICOTINE 21MG/24HR 1 EA TRANSDERMAL TD SCH (08:12)
[2023-06-01] MEDS: busPIRone 10 MG TAB PO SCH ×2 (08:12→16:47)
[2023-06-01 16:32] VITALS: BP 135/82; TEMP 97.8; O2SAT 98
[2023-06-01] MEDS: diphenhydrAMINE 25MG CAP PO PRN (16:47)
[2023-06-01] MEDS: ACETAMINOPHEN TAB 650MG DOSE (2X325MG) PO PRN (19:53)
[2023-06-01] MEDS: OLANZapine 5 MG TAB PO SCH (20:09)
[2023-06-01] MEDS: traZODone 50 MG TAB PO PRN (20:09)
[2023-06-02 06:28] VITALS: BP 106/65; TEMP 98.7; O2SAT 95
[2023-06-02] MEDS: busPIRone 10 MG TAB PO SCH ×2 (08:05→16:59)
[2023-06-02] MEDS: diazePAM 5MG TABLET PO SCH ×2 (08:05→16:59)
[2023-06-02] MEDS: NICOTINE 21MG/24HR 1 EA TRANSDERMAL TD SCH (08:05)
[2023-06-02] MEDS: OLANZapine 5 MG TAB PO SCH ×2 (08:05→20:20)
[2023-06-02] MEDS: lamoTRIgine 100MG TAB PO SCH ×2 (08:05→20:20)
[2023-06-02] MEDS: BUPRENORPHINE HCL 8MG SUBINGUAL TABLET SL SCH (08:45)
[2023-06-02] MEDS: OLANZapine ORAL DISINTEGRATING TAB 5MG PO PRN (13:07)
[2023-06-02 16:36] VITALS: BP 144/77; TEMP 98.4; O2SAT 97
[2023-06-02] MEDS: traZODone 50 MG TAB PO PRN (20:20)
[2023-06-03 06:06] VITALS: BP 122/68; TEMP 99; O2SAT 99
[2023-06-03] MEDS: diazePAM 5MG TABLET PO SCH ×2 (08:10→16:59)
[2023-06-03] MEDS: busPIRone 10 MG TAB PO SCH ×2 (08:10→16:58)
[2023-06-03] MEDS: NICOTINE 21MG/24HR 1 EA TRANSDERMAL TD SCH (08:10)
[2023-06-03] MEDS: lamoTRIgine 100MG TAB PO SCH ×2 (08:10→20:25)
[2023-06-03] MEDS: OLANZapine 5 MG TAB PO SCH ×2 (08:10→20:26)
[2023-06-03] MEDS: ACETAMINOPHEN TAB 650MG DOSE (2X325MG) PO PRN (08:12)
[2023-06-03] MEDS: BUPRENORPHINE HCL 8MG SUBINGUAL TABLET SL SCH (09:29)
[2023-06-03 15:55] VITALS: BP 106/68; TEMP 98.5; O2SAT 100
[2023-06-03] MEDS: OLANZapine ORAL DISINTEGRATING TAB 5MG PO PRN (15:58)
[2023-06-03] MEDS: traZODone 50 MG TAB PO PRN (20:25)
[2023-06-04] MEDS: ACETAMINOPHEN TAB 650MG DOSE (2X325MG) PO PRN ×2 (01:59→09:30)
[2023-06-04 07:03] VITALS: BP 102/63; TEMP 98.5; O2SAT 97
[2023-06-04] MEDS: lamoTRIgine 100MG TAB PO SCH ×2 (08:05→20:04)
[2023-06-04] MEDS: OLANZapine 5 MG TAB PO SCH ×2 (08:05→20:04)
[2023-06-04] MEDS: diazePAM 5MG TABLET PO SCH ×2 (08:05→16:44)
[2023-06-04] MEDS: busPIRone 10 MG TAB PO SCH ×2 (08:06→16:44)
[2023-06-04] MEDS: BUPRENORPHINE HCL 8MG SUBINGUAL TABLET SL SCH (08:06)
[2023-06-04] MEDS: NICOTINE 21MG/24HR 1 EA TRANSDERMAL TD SCH (08:06)
[2023-06-04] MEDS: diphenhydrAMINE 25MG CAP PO PRN (13:49)
[2023-06-04 15:34] VITALS: BP 125/79; TEMP 98.4; O2SAT 98
[2023-06-04] MEDS: OLANZapine ORAL DISINTEGRATING TAB 5MG PO PRN (18:14)
[2023-06-04] MEDS: traZODone 50 MG TAB PO PRN (20:04)
[2023-06-04] MEDS: IBUPROFEN 400MG TAB PO PRN (21:57)
[2023-06-05 06:26] VITALS: BP 131/64; TEMP 98.5; O2SAT 97
[2023-06-05] MEDS: OLANZapine 5 MG TAB PO SCH ×2 (08:36→20:34)
[2023-06-05] MEDS: NICOTINE 21MG/24HR 1 EA TRANSDERMAL TD SCH (08:36)
[2023-06-05] MEDS: BUPRENORPHINE HCL 8MG SUBINGUAL TABLET SL SCH (08:36)
[2023-06-05] MEDS: lamoTRIgine 100MG TAB PO SCH ×2 (08:36→20:34)
[2023-06-05] MEDS: diazePAM 5MG TABLET PO SCH ×2 (08:36→16:12)
[2023-06-05] MEDS: busPIRone 10 MG TAB PO SCH ×2 (08:36→16:12)
[2023-06-05] MEDS: OLANZapine ORAL DISINTEGRATING TAB 5MG PO PRN (13:35)
[2023-06-05] MEDS: IBUPROFEN 400MG TAB PO PRN (15:08)
[2023-06-05] MEDS: ACETAMINOPHEN TAB 650MG DOSE (2X325MG) PO PRN (16:11)
[2023-06-05 18:15] VITALS: BP 122/82
[2023-06-05 18:33] VITALS: BP 137/93; TEMP 98.8; O2SAT 99
[2023-06-05] MEDS: traZODone 50 MG TAB PO PRN (20:34)
[2023-06-06 05:58] VITALS: BP 122/71; TEMP 97.3; O2SAT 98
[2023-06-06] MEDS: lamoTRIgine 100MG TAB PO SCH ×2 (08:17→20:22)
[2023-06-06] MEDS: busPIRone 10 MG TAB PO SCH ×2 (08:17→16:48)
[2023-06-06] MEDS: diazePAM 5MG TABLET PO SCH ×2 (08:17→16:48)
[2023-06-06] MEDS: NICOTINE 21MG/24HR 1 EA TRANSDERMAL TD SCH (08:18)
[2023-06-06] MEDS: BUPRENORPHINE HCL 8MG SUBINGUAL TABLET SL SCH (08:18)
[2023-06-06] MEDS: OLANZapine 5 MG TAB PO SCH (08:18)
[2023-06-06] MEDS ORDERED: BENZTROPINE 0.5 MG TAB PO PRN (10:35)
[2023-06-06] MEDS: traZODone 50 MG TAB PO PRN (20:21)
[2023-06-06] MEDS: OLANZapine 10 MG TAB PO SCH (20:22)
[2023-06-06] MEDS: ACETAMINOPHEN TAB 650MG DOSE (2X325MG) PO PRN (21:34)
[2023-06-07 06:21] VITALS: BP 141/76; TEMP 97.5; O2SAT 99
[2023-06-07] MEDS: lamoTRIgine 100MG TAB PO SCH ×2 (07:59→20:10)
[2023-06-07] MEDS: diazePAM 5MG TABLET PO SCH ×2 (07:59→17:07)
[2023-06-07] MEDS: BUPRENORPHINE HCL 8MG SUBINGUAL TABLET SL SCH (07:59)
[2023-06-07] MEDS: OLANZapine 10 MG TAB PO SCH ×2 (07:59→20:10)
[2023-06-07] MEDS: NICOTINE 21MG/24HR 1 EA TRANSDERMAL TD SCH (08:00)
[2023-06-07] MEDS: busPIRone 10 MG TAB PO SCH ×2 (08:00→17:06)
[2023-06-07] MEDS: IBUPROFEN 400MG TAB PO PRN (09:55)
[2023-06-07] MEDS: OLANZapine ORAL DISINTEGRATING TAB 5MG PO PRN (13:21)
[2023-06-07 15:00] VITALS: BP 148/58; TEMP 98.4; O2SAT 98
[2023-06-07] MEDS: ACETAMINOPHEN TAB 650MG DOSE (2X325MG) PO PRN (17:07)
[2023-06-07] MEDS: traZODone 50 MG TAB PO PRN (20:10)
[2023-06-08 06:30] VITALS: BP 145/83; TEMP 98.1; O2SAT 99
[2023-06-08] MEDS: OLANZapine 10 MG TAB PO SCH ×2 (08:04→20:00)
[2023-06-08] MEDS: busPIRone 10 MG TAB PO SCH ×2 (08:04→16:05)
[2023-06-08] MEDS: BUPRENORPHINE HCL 8MG SUBINGUAL TABLET SL SCH (08:04)
[2023-06-08] MEDS: NICOTINE 21MG/24HR 1 EA TRANSDERMAL TD SCH (08:04)
[2023-06-08] MEDS: lamoTRIgine 100MG TAB PO SCH ×2 (08:04→20:00)
[2023-06-08] MEDS: diazePAM 5MG TABLET PO SCH ×2 (08:04→16:05)
[2023-06-08] MEDS: OLANZapine ORAL DISINTEGRATING TAB 5MG PO PRN (13:13)
[2023-06-08 17:58] VITALS: BP 139/77; TEMP 98; O2SAT 98
[2023-06-08] MEDS: traZODone 50 MG TAB PO PRN (20:01)
[2023-06-08] MEDS: ACETAMINOPHEN TAB 650MG DOSE (2X325MG) PO PRN (20:04)
[2023-06-09 06:39] VITALS: BP 125/70; TEMP 97.6
[2023-06-09] MEDS: OLANZapine 10 MG TAB PO SCH (08:03)
[2023-06-09] MEDS: BUPRENORPHINE HCL 8MG SUBINGUAL TABLET SL SCH (08:03)
[2023-06-09] MEDS: lamoTRIgine 100MG TAB PO SCH (08:03)
[2023-06-09] MEDS: busPIRone 10 MG TAB PO SCH (08:03)
[2023-06-09] MEDS: NICOTINE 21MG/24HR 1 EA TRANSDERMAL TD SCH (08:04)
[2023-06-09] MEDS: diazePAM 5MG TABLET PO SCH (08:13)
[2023-06-09] MEDS ORDERED: VITA200032 PO (11:11)
[2023-06-09] MEDS ORDERED: TADA5TAB PO (11:11)
[2023-06-09] MEDS ORDERED: BUSP30TA PO (11:11)
[2023-06-09] MEDS ORDERED: OLAN1TAB20 PO (11:11)
[2023-06-09] MEDS ORDERED: LAMO200T54 PO (11:11)
[2023-06-09] MEDS ORDERED: DIAZ5TAB PO (11:11)
== END 2023-06-09 12:34 | disposition home or self-care (01) | DRG 753 ==
LOC: M ED 15:07 → M ED INP 18:03 → M PSY 20:16
PROVIDERS: ADMIT Student in an Organized Health Care Education/Training Program; ATTEND Student in an Organized Health Care Education/Training Program
DX: F31.89 Other bipolar disorder (principal); F40.01 Agoraphobia with panic disorder; F11.11 Opioid abuse, in remission; M54.9 Dorsalgia, unspecified; Z95.828 Presence of other vascular implants and grafts; Z81.8 Family history of other mental and behavioral disorders; Z79.891 Long term (current) use of opiate analgesic; Z79.899 Other long term (current) drug therapy; Z20.822 Contact with and (suspected) exposure to COVID-19; Z56.0 Unemployment, unspecified; Z91.51 Personal history of suicidal behavior

== ENCOUNTER → 2023-08-16 | Outpatient (CLI) | payer OTHER ==
[~2023-08-16] MED LIST changes: +BUPR8SUB SL; +BUSP30TA PO; +DIAZ5TAB PO; +LAMO200T54 PO; +med rec comment
== END ==
LOC: M RAD 14:33
PROVIDERS: ATTEND Orthopaedic Surgery
DX: M47.812 Spondylosis without myelopathy or radiculopathy, cervical region (principal); M47.817 Spondylosis without myelopathy or radiculopathy, lumbosacral region; M48.02 Spinal stenosis, cervical region; M48.061 Spinal stenosis, lumbar region without neurogenic claudication; M48.07 Spinal stenosis, lumbosacral region

== ENCOUNTER → 2023-11-24 | Outpatient (REF) | payer BC, MEDICAID, OTHER ==
[2023-11-24 14:01] LABS: Trichomonas vaginalis (AMP) NOT DETECTED (NEGATIVE)
[2023-11-24 14:25] LABS: GC DNA AMPLIFICATION NEGATIVE (NEGATIVE)
== END ==
LOC: M LAB REF 11:59
PROVIDERS: ATTEND Nurse Practitioner Family
DX: Z11.4 Encounter for screening for human immunodeficiency virus [HIV] (principal); Z11.3 Encounter for screening for infections with a predominantly sexual mode of transmission

== ENCOUNTER → 2023-12-13 | Outpatient (CLI) | payer BC | LOC: M RAD 16:11 | PROVIDERS: ATTEND Nurse Practitioner Family | DX: L72.9 Follicular cyst of the skin and subcutaneous tissue, unspecified (principal); R22.31 Localized swelling, mass and lump, right upper limb ==

== ENCOUNTER → 2024-01-04 | Outpatient (REF) | payer BC, MEDICAID ==
[2024-01-04 13:40] LABS: BLOOD UREA NITROGEN 11 MG/DL (9-23); CALCIUM LEVEL 9.2 MG/DL (8.5-10.1); CARBON DIOXIDE LEVEL 26 MMOL/L (20-31); CHLORIDE LEVEL 105 MMOL/L (98-107); CHOLESTEROL LEVEL 161 MG/DL (<200); CHOLESTEROL RISK RATIO 2.59 (<5); CREATININE FOR GFR 1.02 MG/DL (0.70-1.30); GLOMERULAR FILTRATION RATE > 60.0 (>60); GLUCOSE, FASTING 95 MG/DL (60-100); HDL CHOLESTEROL 62.1 MG/DL (>40); LDL CHOLESTEROL 84.3 MG/DL (<100); NON-HDL-C 98.9 MG/DL; SODIUM LEVEL 139 MMOL/L (136-145); TRIGLYCERIDES LEVEL 73 MG/DL (<150)
[2024-01-04 13:47] LABS: BASO % 0.7 % (0.0-1.0); EOS # 0.2 10^3/uL (0.0-0.5); EOS % 2.7 % (0.0-3.0); HEMATOCRIT 39.6 % (42.0-52.0); HEMOGLOBIN 13.6 g/dl (13.5-17.5); LYMPH # 2.2 10^3/uL (1.5-5.0); LYMPH % 39.9 % (24.0-44.0); MEAN CORPUSCULAR HEMOGLOBIN 28.9 pg (27.0-33.0); MEAN CORPUSCULAR HGB CONC 34.3 g/dl (32.0-36.5); MEAN CORPUSCULAR VOLUME 84.3 fl (80.0-96.0); MONO # 0.6 10^3/uL (0.0-0.8); MONO % 10.7 % (2.0-8.0); NEUTROPHILS # 2.6 10^3/uL (1.5-8.5); NEUTROPHILS % 45.8 % (36.0-66.0); PLATELET COUNT, AUTOMATED 302 10^3/uL (150-450); WHITE BLOOD COUNT 5.6 10^3/uL (4.0-10.0)
== END ==
LOC: M LAB REF 12:24
PROVIDERS: ATTEND Nurse Practitioner Family
DX: Z00.00 Encounter for general adult medical examination without abnormal findings (principal)

== ENCOUNTER 2024-01-22 07:18 | Day surgery (SDC) | payer BC ==
[~2024-01-22] VITALS: Ht 172.7 cm; Wt 97.8 kg
[~2024-01-22 07:18] MED LIST changes: +LUMA42CA PO; +LURA60TA PO; +NARC1SPR; +ZIPR40CA20 PO; +ceFAZolin SOD 2 GM in IV 1 EA IV ONE
[2024-01-22] MEDS ORDERED: MIDAZOLAM INJ 2MG/2ML VIAL As Ordered ONE (08:06)
[2024-01-22] MEDS ORDERED: fentaNYL 100 MCG/2 ML INJECTION As Ordered ONE (08:07)
[2024-01-22] MEDS ORDERED: SILD50TA2 PO (08:08)
[2024-01-22] MEDS: LR 1,000 ML IV SCH (08:15)
[2024-01-22] MEDS ORDERED: propofoL 200 MG/20 ML VIAL As Ordered ONE (09:18)
[2024-01-22] MEDS ORDERED: ACETAMINOPHEN 1000MG 100ML IV BAG As Ordered ONE (09:18)
[2024-01-22] MEDS ORDERED: LIDOCAINE 2% 100MG/5ML SDV (FOR ANES.) As Ordered ONE (09:18)
[2024-01-22] MEDS ORDERED: ONDANSETRON 4MG 2ML VIAL As Ordered ONE (09:19)
[2024-01-22] MEDS ORDERED: KETOROLAC 60MG 2ML VIAL As Ordered ONE (09:19)
[2024-01-22] MEDS ORDERED: ePHEDrine SULFATE 25 MG/5 ML(5MG/ML) SYRINGE As Ordered ONE (09:21)
[2024-01-22] MEDS ORDERED: PHENYLephrine 500MCG 5ML (100MCG/ML) SYRINGE As Ordered ONE (09:29)
[2024-01-22] MEDS ORDERED: ONDANSETRON 4MG 2ML VIAL IV PRN (10:10)
[2024-01-22] MEDS ORDERED: oxyCODONE 5MG TAB PO PRN (10:10)
[2024-01-22] MEDS ORDERED: LR 1,000 ML IV SCH (10:10)
[2024-01-22] MEDS ORDERED: fentaNYL 100 MCG/2 ML INJECTION IV PRN (10:10)
[2024-01-22] MEDS ORDERED: HYDROMORPHONE HCL 0.5 MG/ 0.5 ML SYRINGE IV PRN (10:10)
[2024-01-22 10:45] VITALS: BP 136/95; TEMP 98.2; O2SAT 99
== END 2024-01-22 11:05 | disposition home or self-care (01) ==
LOC: M SDC 07:18
PROVIDERS: ATTEND Surgery
DX: D21.11 Benign neoplasm of connective and other soft tissue of right upper limb, including shoulder (principal); F31.9 Bipolar disorder, unspecified; Z79.899 Other long term (current) drug therapy; Z87.891 Personal history of nicotine dependence; Z85.828 Personal history of other malignant neoplasm of skin; Z86.718 Personal history of other venous thrombosis and embolism
CPT/HCPCS: 23071; 88304; C9290; J0131; J0665; J1100; J1885; J2250; J2371; J2405

== ENCOUNTER → 2024-04-08 | Outpatient (CLI) | payer BC ==
[~2024-04-08] MED LIST changes: +SILD50TA2 PO; -ceFAZolin SOD 2 GM in IV 1 EA IV ONE
== END ==
LOC: M RAD 10:03
PROVIDERS: ATTEND Nurse Practitioner Family
DX: I83.891 Varicose veins of right lower extremity with other complications (principal)

== ENCOUNTER 2024-05-01 10:40 | Inpatient (IN) | payer BC ==
[~2024-05-01] VITALS: Ht 172.7 cm; Wt 89.7 kg
[2024-05-01 11:39] LABS: HEMATOCRIT 42.5 % (42.0-52.0); HEMOGLOBIN 14.2 g/dl (13.5-17.5); MEAN CORPUSCULAR HEMOGLOBIN 28.8 pg (27.0-33.0); MEAN CORPUSCULAR HGB CONC 33.4 g/dl (32.0-36.5); MEAN CORPUSCULAR VOLUME 86.2 fl (80.0-96.0); PLATELET COUNT, AUTOMATED 325 10^3/uL (150-450); RED BLOOD COUNT 4.93 10^6/uL (4.30-6.10)
[2024-05-01 12:00] LABS: AMPHETAMINES LEVEL URINE NEGATIVE (NEGATIVE); BARBITURATES URINE NEGATIVE (NEGATIVE); COCAINE METABOLITE URINE NEGATIVE (NEGATIVE); METHADONE URINE NEGATIVE (NEGATIVE); OPIATES URINE NEGATIVE (NEGATIVE); PHENCYCLIDINE URINE NEGATIVE (NEGATIVE)
[2024-05-01 12:02] LABS: ETHYL ALCOHOL (ETHANOL) < 0.003 % (0.000-0.010)
[2024-05-01 12:04] LABS: ALBUMIN 4.5 G/DL (3.2-5.2); ALKALINE PHOSPHATASE 74 U/L (40-129); ALT/SGPT 16 U/L (7.0-40); AST/SGOT 11 U/L (<34); BILIRUBIN,DIRECT 0.2 MG/DL (<0.4); BILIRUBIN,TOTAL 0.4 MG/DL (0.3-1.2); BLOOD UREA NITROGEN 13 MG/DL (9-23); CARBON DIOXIDE LEVEL 28 MMOL/L (20-31); CHLORIDE LEVEL 106 MMOL/L (98-107); CREATININE FOR GFR 0.96 MG/DL (0.70-1.30); GLOMERULAR FILTRATION RATE > 60.0 (>60); GLUCOSE, FASTING 110 MG/DL (60-100); POTASSIUM SERUM 4.3 MMOL/L (3.5-5.1); SODIUM LEVEL 140 MMOL/L (136-145); TOTAL PROTEIN 7.8 G/DL (5.7-8.2)
[2024-05-01 12:06] LABS: THYROID STIMULATING HORMONE 1.233 uIU/ML (0.55-4.78)
[2024-05-01 12:12] LABS: BENZODIAZEPINES URINE POSITIVE (NEGATIVE); CANNABINOIDS URINE POSITIVE (NEGATIVE)
[2024-05-01] MEDS ORDERED: LUMA42CA PO (12:17)
[2024-05-01] MEDS ORDERED: BUSP15TA47 PO (12:17)
[2024-05-01] MEDS ORDERED: LAMO200T54 PO (12:17)
[2024-05-01 12:28] LABS: SALICYLATE LEVEL < 3.0 MG/DL (<30)
[2024-05-01] MEDS ORDERED: HOME MED LIST COMPLETE! XX SCH (13:20)
[2024-05-01] MEDS ORDERED: IBUPROFEN 400MG TAB PO PRN (13:50)
[2024-05-01] MEDS ORDERED: ACETAMINOPHEN 325 MG TAB PO PRN (13:50)
[2024-05-01] MEDS ORDERED: MAALOX 30 ML SUSP *UDC PO PRN (13:50)
[2024-05-01] MEDS ORDERED: MOM 30ML SUSPENSION UDC PO PRN (13:50)
[2024-05-01 15:30] VITALS: BP 138/88; TEMP 97.5; O2SAT 99
[2024-05-01] MEDS: BUPRENORPHINE/NALOXONE 8-2MG SUBLINGUAL TABLET(SUBOXONE) SL ONE (18:48)
[2024-05-01] MEDS: lamoTRIgine 100MG TAB PO SCH (20:54)
[2024-05-01] MEDS: diazePAM 5MG TABLET PO PRN (20:55)
[2024-05-01] MEDS: busPIRone 5 MG TAB PO SCH (20:55)
[2024-05-01] MEDS: traZODone 50 MG TAB PO PRN (23:15)
[2024-05-02 06:29] VITALS: BP 120/76; TEMP 98.9; O2SAT 100
[2024-05-02] MEDS: BUPRENORPHINE/NALOXONE 8-2MG SUBLINGUAL TABLET(SUBOXONE) SL SCH (08:14)
[2024-05-02 14:54] VITALS: BP 127/82; TEMP 98.4; O2SAT 99
[2024-05-02] MEDS: OLANZapine ORAL DISINTEGRATING TAB 5MG PO PRN (16:50)
[2024-05-03 06:36] VITALS: BP 122/79; TEMP 98.4; O2SAT 100
[2024-05-03 16:42] VITALS: BP 130/81; TEMP 98.4; O2SAT 100
[2024-05-03] MEDS: OLANZapine 10 MG TAB PO SCH (20:05)
[2024-05-04 06:34] VITALS: BP 151/92; TEMP 97.5; O2SAT 99
[2024-05-04 15:15] VITALS: BP 138/72; TEMP 97.6; O2SAT 100
[2024-05-05 06:22] VITALS: BP 124/74; TEMP 97.8; O2SAT 100
[2024-05-05 16:09] VITALS: BP 124/73; TEMP 98.4; O2SAT 100
[2024-05-06 06:23] VITALS: BP 122/67; TEMP 98.2; O2SAT 99
[2024-05-06 14:51] VITALS: BP 159/82; TEMP 98; O2SAT 97
[2024-05-06] MEDS: diazePAM 5MG TABLET PO SCH (14:56)
[2024-05-06] MEDS: diphenhydrAMINE 25MG CAP PO PRN (20:34)
[2024-05-07 06:48] VITALS: BP 106/66; TEMP 98.1
[2024-05-07 15:07] VITALS: BP 128/90; TEMP 97.9; O2SAT 99
[2024-05-07] MEDS: OLANZapine 10 MG TAB PO SCH (20:13)
[2024-05-07] MEDS ORDERED: BUPRENORPHINE/NALOXONE 8-2MG SUBLINGUAL TABLET(SUBOXONE) SL SCH (21:00)
[2024-05-08 06:08] VITALS: BP 120/72; TEMP 98; O2SAT 99
[2024-05-08] MEDS ORDERED: DIPH-435 PO (11:12)
[2024-05-08] MEDS ORDERED: OLAN1TAB20 PO (11:12)
[2024-05-08] MEDS ORDERED: BUSP5TA PO (11:12)
[2024-05-08] MEDS ORDERED: TRAZ-252 PO (11:12)
[2024-05-08] MEDS ORDERED: BUPR1SUB5 SL (11:12)
[2024-05-08] MEDS ORDERED: DIAZ5TAB PO (11:12)
[2024-05-08] MEDS ORDERED: OLAN5ZYD PO (11:12)
[2024-05-08] MEDS ORDERED: LAMO100T80 PO (11:12)
[2024-05-08] MEDS ORDERED: ZYPR5TAB2 PO (12:19)
== END 2024-05-08 12:04 | disposition home or self-care (01) | DRG 751 ==
LOC: M ED 10:40 → M ED INP 13:46 → M PSY 14:58
PROVIDERS: ADMIT Psychiatry & Neurology Psychiatry; ATTEND Psychiatry & Neurology Psychiatry
DX: F29 Unspecified psychosis not due to a substance or known physiological condition (principal); F31.9 Bipolar disorder, unspecified; F11.21 Opioid dependence, in remission; F41.1 Generalized anxiety disorder

== ENCOUNTER → 2024-09-11 | Outpatient (REF) | payer BC ==
[~2024-09-11] MED LIST changes: +BUSP15TA47 PO; +BUSP5TA PO; +DIPH-435 PO; +LAMO100T80 PO; +OLAN5ZYD PO; -TADA5TAB PO; +TADA5TAB94 PO; +ZYPR5TAB2 PO
[2024-09-11 19:07] LABS: BASO # 0.1 10^3/uL (0.0-0.2); BASO % 0.7 % (0.0-1.0); EOS # 0.1 10^3/uL (0.0-0.5); EOS % 0.9 % (0.0-3.0); HEMATOCRIT 40.4 % (42.0-52.0); HEMOGLOBIN 13.8 g/dl (13.5-17.5); LYMPH # 2.3 10^3/uL (1.5-5.0); LYMPH % 24.3 % (24.0-44.0); MEAN CORPUSCULAR HGB CONC 34.2 g/dl (32.0-36.5); MEAN CORPUSCULAR VOLUME 84.9 fl (80.0-96.0); MONO # 1.2 10^3/uL (0.0-0.8); MONO % 12.4 % (2.0-8.0); NEUTROPHILS # 5.9 10^3/uL (1.5-8.5); NEUTROPHILS % 61.4 % (36.0-66.0); PLATELET COUNT, AUTOMATED 387 10^3/uL (150-450); RED BLOOD COUNT 4.76 10^6/uL (4.30-6.10); WHITE BLOOD COUNT 9.5 10^3/uL (4.0-10.0)
[2024-09-11 19:27] LABS: HEMOGLOBIN A1c 5.4 % (4.0-6.0)
[2024-09-11 19:33] LABS: ALBUMIN 4.4 G/DL (3.2-5.2); ALKALINE PHOSPHATASE 76 U/L (40-129); ALT/SGPT 17 U/L (7.0-40); AST/SGOT 19 U/L (<34); BILIRUBIN,TOTAL 0.5 MG/DL (0.3-1.2); BLOOD UREA NITROGEN 16 MG/DL (9-23); CALCIUM LEVEL 9.9 MG/DL (8.5-10.1); CARBON DIOXIDE LEVEL 29 MMOL/L (20-31); CHLORIDE LEVEL 103 MMOL/L (98-107); CHOLESTEROL LEVEL 156 MG/DL (<200); CHOLESTEROL RISK RATIO 2.33 (<5); CREATININE FOR GFR 0.92 MG/DL (0.70-1.30); GLOMERULAR FILTRATION RATE > 60.0 (>60); GLUCOSE, FASTING 86 MG/DL (60-100); HDL CHOLESTEROL 66.9 MG/DL (>40); LDL CHOLESTEROL 76.5 MG/DL (<100); NON-HDL-C 89.1 MG/DL; POTASSIUM SERUM 4.4 MMOL/L (3.5-5.1); SODIUM LEVEL 141 MMOL/L (136-145); TOTAL PROTEIN 7.7 G/DL (5.7-8.2); TRIGLYCERIDES LEVEL 63 MG/DL (<150)
[2024-09-11 19:35] LABS: THYROID STIMULATING HORMONE 2.848 uIU/ML (0.55-4.78)
== END ==
LOC: M LAB REF 17:34
PROVIDERS: ATTEND Nurse Practitioner Family
DX: E66.9 Obesity, unspecified (principal)

== ENCOUNTER 2024-10-20 03:17 | Emergency (ER) | payer BC ==
[~2024-10-20] VITALS: Ht 172.7 cm; Wt 96.8 kg
[~2024-10-20 03:17] MED LIST changes: +TADA5TAB2 PO; -TADA5TAB94 PO
[2024-10-20 03:23] VITALS: TEMP 98.5
[2024-10-20 04:45] VITALS: BP 115/59
[2024-10-20] MEDS ORDERED: KETO-204 PO (04:46)
[2024-10-20] MEDS ORDERED: METH-1165 PO (04:46)
[2024-10-20 04:47] VITALS: O2SAT 95
[2024-10-20] MEDS: methocarbamoL 750 MG TAB PO ONE (05:00)
[2024-10-20] MEDS: KETOROLAC 60MG 2ML VIAL IM ONE (05:00)
== END 2024-10-20 05:03 | disposition home or self-care (01) ==
LOC: M ED 03:17
DX: M54.42 Lumbago with sciatica, left side (principal); Z79.2 Long term (current) use of antibiotics; Z79.899 Other long term (current) drug therapy
CPT/HCPCS: 96372; 99284; J1885

== ENCOUNTER → 2024-10-23 | Outpatient (CLI) | payer BC ==
[~2024-10-23] MED LIST changes: +KETO-204 PO; +METH-1165 PO
== END ==
LOC: M RAD 15:15
PROVIDERS: ATTEND Nurse Practitioner Family
DX: M54.32 Sciatica, left side (principal); M47.816 Spondylosis without myelopathy or radiculopathy, lumbar region; M25.78 Osteophyte, vertebrae

== ENCOUNTER → 2024-10-28 | Outpatient (CLI) | payer BC | LOC: M RAD 16:18 | PROVIDERS: ATTEND Nurse Practitioner Family | DX: M54.32 Sciatica, left side (principal); M51.26 Other intervertebral disc displacement, lumbar region; M99.63 Osseous and subluxation stenosis of intervertebral foramina of lumbar region ==

== ENCOUNTER → 2025-04-11 | Outpatient (REF) | payer BC ==
[~2025-04-11] MED LIST changes: -DEPA250T32 PO; +DIVA-41 PO; +DIVA-65 PO; -DIVA500T94 PO; -LUMA42CA PO; +LUMA42CA4 PO
== END ==
LOC: M SFHCDERM 15:08
PROVIDERS: ATTEND Nurse Practitioner Family
DX: D22.39 Melanocytic nevi of other parts of face (principal)

== ENCOUNTER → 2025-05-02 | Outpatient (REF) | payer BC ==
[2025-05-02 15:18] LABS: BASO # 0.0 10^3/uL (0.0-0.2); BASO % 0.4 % (0.0-1.0); EOS # 0.2 10^3/uL (0.0-0.5); EOS % 2.8 % (0.0-3.0); LYMPH # 2.0 10^3/uL (1.5-5.0); LYMPH % 29.3 % (24.0-44.0); MONO # 0.6 10^3/uL (0.0-0.8); MONO % 8.6 % (2.0-8.0); NEUTROPHILS # 4.0 10^3/uL (1.5-8.5); NEUTROPHILS % 58.5 % (36.0-66.0); PLATELET COUNT, AUTOMATED 310 10^3/uL (150-450)
[2025-05-02 15:31] LABS: ESTIMATED AVERAGE GLUCOSE 105.0 MG/DL (60-110)
[2025-05-02 15:46] LABS: ALT/SGPT 21 U/L (7.0-40); AST/SGOT 17 U/L (<34); CALCIUM LEVEL 8.8 MG/DL (8.5-10.1); CARBON DIOXIDE LEVEL 29 MMOL/L (20-31); CHLORIDE LEVEL 107 MMOL/L (98-107); CHOLESTEROL LEVEL 189 MG/DL (<200); CHOLESTEROL RISK RATIO 2.73 (<5); CREATININE FOR GFR 0.92 MG/DL (0.70-1.30); GLOMERULAR FILTRATION RATE > 90.0 (>60); LDL CHOLESTEROL 98.4 MG/DL (<100); NON-HDL-C 120.0 MG/DL; POTASSIUM SERUM 4.6 MMOL/L (3.5-5.1); SODIUM LEVEL 143 MMOL/L (136-145); TRIGLYCERIDES LEVEL 108 MG/DL (<150)
[2025-05-02 15:47] LABS: TOTAL 25(OH) VITAMIN D 26.7 NG/ML (20.0-100.0)
== END ==
LOC: M LAB REF 12:14
PROVIDERS: ATTEND Physician Assistant
DX: E66.9 Obesity, unspecified (principal)

== ENCOUNTER → 2025-05-13 | Outpatient (CLI) | payer BC | LOC: M RAD 13:07 | PROVIDERS: ATTEND Physician Assistant | DX: M79.672 Pain in left foot (principal) ==